=== PATIENT | male | born 1985 | race African-American/Black ===

== ENCOUNTER 2020-12-14 11:18 | Emergency (ER) | payer MEDICAID ==
[~2020-12-14] VITALS: Ht 172.7 cm; Wt 76.0 kg
[2020-12-14 12:24] LABS: BASOPHILS % 0.4 % (0.0-2.0); EOSINOPHILS % 0.1 % (0.0-5.0); HEMATOCRIT. 44.1 % (42.0-52.0); HEMOGLOBIN. 14.7 g/dL (14.0-18.0); LYMPHOCYTES % 9.7 % (20.0-50.0); MEAN CORPUSCULAR HEMOGLOBIN 32.7 pg (28.0-32.0); MEAN CORPUSCULAR VOLUME 97.9 fL (80.0-94.0); MEAN PLATELET VOLUME 8.1 fl (7.4-10.4); MONOCYTES % 3.5 % (2.0-8.0); NEUTROPHILS % 86.3 % (40.0-76.0); PLATELET 246 x1000/uL (130-400); RED BLOOD CELL COUNT 4.51 mill/uL (4.7-6.1); RED CELL DISTRIBUTION WIDTH 14.4 % (11.6-14.6)
[2020-12-14 12:39] LABS: CHLORIDE 106 mEq/L (98-107)
[2020-12-14] MEDS ORDERED: ACETAMINOPHEN 325MG TABLET PO ONE (14:00)
[2020-12-14 15:05] VITALS: BP 102/63
== END 2020-12-14 15:15 | disposition home or self-care (01) ==
LOC: ER 11:38
DX: R10.9 Unspecified abdominal pain (principal); F17.200 Nicotine dependence, unspecified, uncomplicated; F12.10 Cannabis abuse, uncomplicated; Z86.59 Personal history of other mental and behavioral disorders
CPT/HCPCS: 36415; 74018; 80053; 85025; 99284